=== PATIENT | female | born 1985 | race Caucasian/White ===

== ENCOUNTER → 2022-04-02 | Outpatient (CLI) | payer OTHER ==
--- NOTE | 2022-04-02 14:47 | Diagnostic Imaging Report ---
INDICATION: Fall with left knee injury. TIME OF EXAM: 09:03 a.m. TECHNIQUE: Three views of the left knee were obtained. FINDINGS: Joint spaces are well maintained. The articular surfaces are smooth. No fracture, dislocation or effusion is identified. IMPRESSION: No acute bony abnormality is detected. Dictated by: Dictated on workstation # [id number]
== END ==
LOC: ORTHO 08:48
PROVIDERS: ATTEND Orthopaedic Surgery
DX: S83.242A Other tear of medial meniscus, current injury, left knee, initial encounter (principal); X58.XXXA Exposure to other specified factors, initial encounter
CPT/HCPCS: 73562; 99203

== ENCOUNTER → 2022-04-14 | Outpatient (CLI) | payer OTHER ==
--- NOTE | 2022-04-14 10:26 | Diagnostic Imaging Report ---
EXAMINATION: Magnetic resonance imaging of the left knee without intravenous contrast DATE: April 14, 2022. COMPARISON: Left knee radiographs April 02, 2022. INDICATION: 36-year-old female, fall. Twisting injury of the left knee 4 weeks ago. Left knee pain. TECHNIQUE: Multiplanar, multisequence non contrast enhanced MR imaging was accomplished. FINDINGS: MENISCI: The medial meniscus is intact. The lateral meniscus is intact. LIGAMENTS AND TENDONS: The anterior and posterior cruciate ligaments are intact. The medial collateral ligament is intact. The iliotibial band, mid third lateral capsular ligament, fibular collateral ligament, biceps femoris tendon and conjoined tendon are intact. The quadriceps tendon and patella ligament are intact. JOINT: The articular cartilage surfaces are intact. There is no knee joint effusion, prominent synovitis, or intra-articular body. BONE: There is a nondisplaced fracture involving the subchondral bone of the lateral tibial plateau at its posterior aspect with adjacent marrow edema. The fracture line is best demonstrated on sagittal PD sequence image 9. The additional bone marrow signal is unremarkable. BURSAE AND SOFT TISSUES: There is minimal fluid in the popliteal fossa without sizable Fernandez's cyst. IMPRESSION: 1. Nondisplaced subchondral fracture of the posterior aspect of the lateral tibial plateau. No offset of the articulating surface or disruption of the overlying cartilage. 2. Intact menisci and cruciate ligaments. Additional ligaments and tendons are intact. 3. Grossly intact articular cartilage. No knee joint effusion. Dictated by: Dictated on workstation # [id number]
== END ==
LOC: RAD 08:54
PROVIDERS: ATTEND Orthopaedic Surgery
DX: S83.242A Other tear of medial meniscus, current injury, left knee, initial encounter (principal); W19.XXXA Unspecified fall, initial encounter
CPT/HCPCS: 73721